=== PATIENT | male | born 1965 ===

== ENCOUNTER 2021-05-05 11:04 | Outpatient (REF) | payer MEDICAID, SELFPAY ==
[2021-05-05 14:58] LABS: ALT 30 U/L (16-63); AST 29 U/L (15-37); Albumin 4.3 g/dL (3.4-5.0); Alkaline Phosphatase 48 U/L (46-116); BUN 17 mg/dL (7-18); Bilirubin, Total 0.8 mg/dL (0.2-1.0); CREATININE 0.6 mg/dL (0.70-1.30); Calcium 9.5 mg/dL (8.5-10.1); Calculated LDL 156 mg/dL (<100); Chloride 102 mmol/L (98-107); Cholesterol 251 mg/dL (<200); Glucose 91 mg/dL (74-106); HDL Cholesterol 66 mg/dL (40-60); Potassium 4.6 mmol/L (3.5-5.1); Sodium 141 mmol/L (136-145); Total Protein 7.4 g/dL (6.4-8.2); Triglyceride 149 mg/dL (<150)
== END 2021-05-05 11:05 | disposition home or self-care (01) ==
LOC: NCHCN 11:04
PROVIDERS: Visit Provider Internal Medicine
DX: E78.5 Hyperlipidemia, unspecified (principal); K76.9 Liver disease, unspecified
CPT/HCPCS: 80053; 80061

== ENCOUNTER 2023-12-02 16:20 | Outpatient (REF) | payer MEDICAID, SELFPAY ==
[2023-12-02 21:08] LABS: Hemoglobin A1C 5.1 % (<5.7)
[2023-12-02 21:10] LABS: ALT 28 U/L (16-63); AST 38 U/L (15-37); Albumin 4.1 g/dL (3.4-5.0); Alkaline Phosphatase 47 U/L (46-116); Anion Gap 11.8 mmol/L (3-11); BUN 24 mg/dL (7-18); Bilirubin, Total 0.4 mg/dL (0.2-1.0); CO2 23.2 mmol/L (21.0-32.0); Calcium 9.7 mg/dL (8.5-10.1); Chloride 106 mmol/L (98-107); Estimated GFR 87.78 (mL/min/1.73m2); Glucose 108 mg/dL (74-106); Potassium 4.7 mmol/L (3.5-5.1); Sodium 141 mmol/L (136-145); Total Protein 7.5 g/dL (6.4-8.2)
[2023-12-02 22:00] LABS: Calculated LDL 116 mg/dL (<100); Cholesterol 226 mg/dL (<200); HDL Cholesterol 47 mg/dL (40-60); Triglyceride 318 mg/dL (<150)
--- OUTSIDE RECORDS SUMMARY | 2023-12-03 13:23 | XMS_ITS | CCD ---
Author Name Unknown Address [address] [place] [address] [phone] Organization Unknown Address [address] [place] [address] [phone] Care Team Providers Care Under Cutting Machine Operator Name Role Phone REESE HAMILTON MD Attending Physician [phone] Vital Signs Unknown or Not Available. Allergies Allergy Code Allergy Type Reaction Status No Known Allergies {Clinical monitoring unavailable} 0 Drug allergy Active Procedures Unknown or Not Available. History of Immunizations Unknown or Not Available. Problems Unknown or Not Available. Results ADELE COVID RHEONIX - Colle ct Date/Time: 08/13/2021 11:00 Test Name Code Test Result Test Units Test Ref Rang e SOURCE= Anterior nasal N/A Tier- EXPOSURE N/A SARS COV2 RNA: 35274-7 NEGATIVE N/A REFERENCE RANGE: NEGAT Active Medications Unknown or Not Available. Medications Administered During Visit Unknown or Not Available. Encounters Encounter Diagnosis Diagnosis Code Start Date CONTACT WITH AND SUSPECTED EXPOSURE TO COVID-19 [id number] 08/13/2021 Social History Smoking Status Code Start Date End Date Former smoker [id number] 11/15/2015 Patient Decision Aids Unknown or Not Available. Discharge Instructions You were admitted to [facility] on 08/13/2021 14:34 with a principal diagnosis of Contact with and (suspected) exposure to COVID-19 You had the following tests done:ADELE COVID RHEONIX You were discharged from [facility] on 08/13/2021 14:34 Should you have any questions prior to discharge, please contact a member of your healthcare team. If you have left the hospital and have any questions, please contact your primary care physician. Chief Complaint and Reason For Visit Unknown or Not Available. Function Status Unknown or Not Available. Plan of Care Unknown or Not Available. Referral/Transition of Care Unknown or Not Available.
--- OUTSIDE RECORDS SUMMARY | 2023-12-03 13:23 | XMS_ITS | CCD ---
Author Name Unknown Address [address] [place] [address] [phone] Organization Unknown Address [address] [place] [address] [phone] Care Team Providers Care Follow Up Rep Name Role Phone MOON CUELLO, HENOK Barriga Attending Physician [phone] Vital Signs Vital Sign Value Unit Date/Time Recent/Initial ? BP Systolic 127 mmHg 05/14/2021 15:05 Initial VS BP Diastolic 82 mmHg 05/14/2021 15:05 Initia l VS Respiratory Rate 22 bpm 05/14/2021 15:05 In itial VS Heart Rate 67 bpm 05/14/2021 15:05 Initial VS O2 % BldC Oximetry 98 % 05/14/2021 15:05 Initial VS Allergies Allergy Code Allergy Type Reaction Status No Known Allergies {Clinical monitoring unavailable} 0 Drug allergy Active Procedures Procedure Code Procedure Type Date Colsc Flx w/[place] [address] CPT 05/14/2021 Colsc Flx With Directed Submucosal Njx Any Sbst 71364 CPT 05/14/2021 History of Immunizations Unknown or Not Available. Problems Unknown or Not Available. Results Unknown or Not Available. Active Medications Unknown or Not Available. Medications Administered During Visit Unknown or Not Available. Encounters Encounter Diagnosis Diagnosis Code Start Date Encounter for screening for malignant neoplasm o f colon Z1211 05/14/2021 Social History Smoking Status Code Start Date End Date Former smoker [id number] 11/15/2015 Patient Decision Aids Unknown or Not Available. Discharge Instructions You were admitted to [facility] on 05/14/2021 10:42 with a principal diagnosis of Encounter for screening for malignant neoplasm of colon You had the following procedures done:Colsc Flx w/Rmvl Of Tumor Polyp Lesion Snare TqColsc Flx With Directed Submucosal Njx Any Sbst You were discharged from [facility] on 05/14/2021 15:35 Should you have any questions prior to [...]
[2023-12-03 21:07] LABS: Hepatitis C Ab w Rflx HCV PCR Negative (Negative)
[2023-12-03 21:13] LABS: HIV-1/2 Ag & Ab Screen Negative (Negative)
== END 2023-12-02 16:21 | disposition home or self-care (01) ==
LOC: NCHCN 16:20
PROVIDERS: Visit Provider Internal Medicine
DX: R74.01 Elevation of levels of liver transaminase levels (principal); E78.5 Hyperlipidemia, unspecified; R73.09 Other abnormal glucose; Z11.59 Encounter for screening for other viral diseases; Z11.4 Encounter for screening for human immunodeficiency virus [HIV]
CPT/HCPCS: 80053; 80061; 86803; 87389; 83036